=== PATIENT | male | born 1975 | race Caucasian/White ===

== ENCOUNTER 2018-05-10 20:38 | Emergency (ER) | payer BC ==
[2018-05-10] MEDS ORDERED: Ketorolac 30 MG/ML SDV IM ONE (21:04)
--- NOTE | 2018-05-10 21:04 | EDM.PDOC ---
ED HPI GENERAL MEDICAL PROBLEM - General Chief Complaint: Back Pain or Injury Stated Complaint: LOWER BACK PAIN Time Seen by Provider: 05/10/18 20:49 Source of Information: Reports: Patient, RN Notes Reviewed History Limitations: Reports: No Limitations - History of Present Illness INITIAL COMMENTS - FREE TEXT/NARRATIVE: Patient is a 42 year old male who presents to the ED for the evaluation of lower back pain. He notes this to be acute in onset. He denies any trauma to the area or previous injury. He states that normally his back is "tight" in the mornings. He woke up yesterday morning with his usual tightness and went about his day. He states that he went outside to start his vehicle and came back in and states that he noticed the pain. He denies any type of lifting/pulling/ twisting movement. He did go to the chiropractor yesterday and this provided some relief, as he was unable to find any type of comfortable position. He would rate his pain at an 8/10. He has been using aleve, ibuprofen and has tried a tab of hydrocodone and hot baths and ice packs. He states that the hydrocodone provided the most relief. He does not have a PCP. He notes that the pain is in his low back and he does have some pain in his right hip and upper thigh. He denies any urinary symptoms or incontinence. lower back Pain Score (Numeric/FACES): 10 - Related Data Allergies Allergy/AdvReac Type Severity Reaction Status Date / Time No Known Allergies Allergy Verified 05/10/18 20:52 Home Meds: Home Meds Orphenadrine [Norflex] 100 mg PO BID PRN #20 tab 05/10/18 [Rx] traMADol [Ultram] 50 mg PO Q6H PRN #30 tab 05/10/18 [Rx] ED ROS GENERAL - Review of Systems Review Of Systems: ROS reveals no pertinent complaints other than HPI. Musculoskeletal: Reports: Back Pain (low back with radiation to right leg), Leg Pain (right upper thigh) ED EXAM,LOWER BACK PAIN/INJURY - Physical Exam Exam: See Below Exam Limited By: No Limitations General Appearance: Alert, WD/WN, No Apparent Distress Respiratory/Chest: No Respiratory Distress, Lungs Clear, Normal Breath Sounds, No Accessory Muscle Use, Chest Non-Tender Cardiovascular: Normal Peripheral Pulses, Regular Rate, Rhythm, No Murmur Back Exam: Normal Inspection, Decreased Range of Motion (due to pain), Muscle Spasm (lumbar area). No: CVA Tenderness (L), CVA Tenderness (R) Extremities: Normal Inspection, Normal Range of Motion, Normal Capillary Refill Neurological: Alert, Normal Mood/Affect, Normal Dorsiflexion, Normal Plantar Flexion, Normal Gait, No Motor/Sensory Deficits, Oriented x 3, Straight Leg Raise (R). No: Straight Leg Raise (L), Saddle Anesthesia Psychiatric: Normal Affect, Normal Mood Skin Exam: Warm, Dry, Intact, Normal Color, No Rash Course - Vital Signs Last Recorded V/S: Last Vital Signs Temp 98.4 F 05/10/18 20:49 Pulse 85 05/10/18 20:49 Resp 18 05/10/18 20:49 BP 158/90 H 05/10/18 20:49 Pulse Ox 96 05/10/18 20:49 - Orders/Labs/Meds Orders: Active Orders 24 hr Category Date Time Status Lumbar Spine 2 or 3V [CR] Stat Exams 05/10/18 21:04 Ordered Meds: Medications Discontinued Medications Generic Name Dose Route Start Last Admin Trade Name Dirkq PRN Reason Stop Dose Admin Ketorolac Tromethamine 30 mg 05/10/18 21:04 05/10/18 21:22 Toradol IM 05/10/18 21:05 30 mg ONETIME ONE Administration Orphenadrine Citrate 100 mg 05/11/18 21:05 Norflex PO BEDTIME LOKI Orphenadrine Citrate 100 mg 05/10/18 21:16 05/10/18 21:21 Norflex PO 05/10/18 21:17 100 mg ONETIME ONE Administration Tramadol HCl 100 mg 05/10/18 22:00 05/10/18 22:13 Ultram PO 05/10/18 22:01 100 mg ONETIME ONE Administration - Re-Assessments/Exams Free Text/Narrative Re-Assessment/Exam: 05/10/18 21:14 Pt presents to the ED for the evaluation of acute onset lower back pain. I have ordered lumbar x-rays and 30 mg IM toradol and 100mg PO norflex for initial management. Plan is to send him home with tramadol and norflex script if he gets relief from initial medications. It is unlikely that he fractured anything , but d/t to the sudden unprovoked onset of pain I went ahead and ordered the spine x-rays for evaluation at this ED visit. 05/10/18 21:42 Lumbar x-rays do not demonstrate any obvious sign of bony abnormality. There is subtle mild degenerative change. Official radiologist read not done, These were reviewed with Dr. Pascual. 05/10/18 22:00 Pt re-assessed at bedside and x-ray results were discussed. He states that he did not get much relief from previous medications. I have ordered 100mg PO tramadol to see if this doesn't help his pain. Departure - Departure Time of Disposition: 22:45 Disposition: Home, Self-Care 01 Condition: Fair Clinical Impression: Low back pain Qualifiers: Chronicity: acute Back pain laterality: right Sciatica presence: with sciatica Sciatica laterality: sciatica of right side Qualified Code(s): M54.41 - Lumbago with sciatica, right side - Discharge Information *PRESCRIPTION DRUG MONITORING PROGRAM REVIEWED*: No *COPY OF PRESCRIPTION DRUG MONITORING REPORT IN PATIENT ANGELIC: No Prescriptions: Orphenadrine [Norflex] 100 mg PO BID PRN #20 tab PRN Reason: muscle spasms traMADol [Ultram] 50 mg PO Q6H PRN #30 tab PRN Reason: Pain Instructions: Back Injury Prevention, [id number], Back Exercises, Easy-to- Read, Back Pain, Adult, [id number] Referrals: PCP,None [Primary Care Provider] - Forms: ED Department Discharge Additional Instructions: You have been evaluated in the ED for your lower back pain. Your x-ray demonstrated no acute sign of any bony fracture/abnormality. Please use ice as tolerated to the affected area. Please take the Tramadol every 6 hours as needed for pain, this works best if you take around 400mg Ibuprofen in conjunction with the tramadol. Please take the Norflex 1 tab twice daily as needed for muscle spasms. You may take tylenol 500 mg or ibuprofen 600mg q6 hrs for pain relief. Please do so until you have a tolerable level of pain with activity. Do not exceed 4000mg tylenol in one day. Do not exceed 3200mg ibuprofen in one day. Please call [phone] to establish care with a primary care provider of your choice within the next week for further management. Please return to ED if your symptoms should change or worsen. - My Orders Last 24 Hours: My Active Orders 05/10/18 21:04 Lumbar Spine 2 or 3V [CR] Stat - Assessment/Plan Last 24 Hours: My Active Orders 05/10/18 21:04 Lumbar Spine 2 or 3V [CR] Stat
[2018-05-10] MEDS ORDERED: Orphenadrine 100 MG Tab.ER PO ONE (21:16)
[2018-05-10] MEDS ORDERED: traMADol 50 MG Tab PO ONE (22:00)
--- NOTE | 2018-05-11 10:00 | CR ---
Lumbar spine: AP, lateral and cone-down lateral views centered to the lumbosacral junction were obtained. Comparison: No prior lumbar spine imaging. Slight anterior osteophytes are noted off superior endplates of L4 and L5. Vertebral body heights and disc spaces are maintained. Pedicles are intact. Visualized transverse and spinous processes are intact. No subluxation or fracture is seen. Sacroiliac joints are within normal limits. Mild vascular calcification is noted within the aorta. Impression: 1. Minimal degenerative change. Mild atherosclerotic change as noted above. Diagnostic code #2
[2018-05-11] MEDS ORDERED: Orphenadrine 100 MG Tab.ER PO SCH (21:05)
== END 2018-05-10 22:55 | disposition home or self-care (01) ==
LOC: JD.ED 20:38
DX: M54.41 Lumbago with sciatica, right side (principal)
CPT/HCPCS: 72100; 96372; 99283; A9270; J1885

== ENCOUNTER 2018-05-15 10:14 | Emergency (ER) | payer BC ==
--- NOTE | 2018-05-15 10:53 | EDM.PDOC ---
ED HPI GENERAL MEDICAL PROBLEM - General Chief Complaint: Back Pain or Injury Stated Complaint: LOWER BACK PAIN Time Seen by Provider: 05/15/18 10:26 Source of Information: Reports: Patient, RN Notes Reviewed, Significant Other ( Fiance) History Limitations: Reports: No Limitations - History of Present Illness INITIAL COMMENTS - FREE TEXT/NARRATIVE: Medical records indicate that the patient was seen in this ED this past Wednesday , 05/10/2018, for sudden onset lower right back pain with radiation to the right lower extremity since 05/09/2018. X-rays of the lumbar spine at that time returned unremarkable. The patient was given Toradol, Norflex, and tramadol in the ED, then discharged home with prescriptions for Norflex and tramadol, with recommendation that he also take [id number] ibuprofen. He was given the phone number to follow-up in the clinic. The patient now returns to the ED stating that his back pain has not improved. He states that neither the Norflex nor tramadol help, but he acknowledges that he has not taking ibuprofen. He points to pain in the right sacroiliac area, and states that it occasionally radiates to his right anterior thigh and groin. He feels better if he is sitting Calvin such as in a vehicle, and feels okay if he is supine. The pain is made worse if he tries to lift his right lower extremity. He denies having any trauma to his lower back, denies prior similar symptoms. The patient states that he has been to his chiropractor 3 times since his last ED visit, but he did not call to follow-up with a PCP. The patient was hoping that I could order a MRI of his lower back for him today. Lower Back Pain Score (Numeric/FACES): 10 - Related Data Allergies Allergy/AdvReac Type Severity Reaction Status Date / Time No Known Allergies Allergy Verified 05/15/18 10:30 Home Meds: Home Meds Orphenadrine [Norflex] 100 mg PO BID PRN #20 tab 05/10/18 [Rx] traMADol [Ultram] 50 mg PO Q6H PRN #30 tab 05/10/18 [Rx] Past Medical History - Past Surgical History Musculoskeletal Surgical History: Reports: Other (See Below) (Left knee pinning) Social & Family History - Family History Family Medical History: Noncontributory - Tobacco Use Smoking Status *Q: Current Every Day Smoker Years of Tobacco use: 27 Packs/Tins Daily: 1 Packs/Tins Daily Comment: Down from 2 ppd - Caffeine Use Caffeine Use: Reports: Coffee - Alcohol Use Alcohol Use History: Yes Alcohol Use Frequency: Socially - Recreational Drug Use Recreational Drug Use: No - Living Situation & Occupation Living situation: Reports: Single, with Significant Other (Fiance), with Family (Daughter) Occupation: Employed (Undercar Specialist) ED ROS GENERAL - Review of Systems Review Of Systems: ROS reveals no pertinent complaints other than HPI. ED EXAM,LOWER BACK PAIN/INJURY - Physical Exam Exam: See Below Exam Limited By: No Limitations General Appearance: Alert, WD/WN, No Apparent Distress Back Exam: Normal Inspection, Full Range of Motion, Other (Reproducible point tenderness over the right SI joint. Nontender elsewhere. The patient is able to flex the spine to 90, and extend the spine to about 30. He is able to tilt the spine to the left to about 30, but is limited to about 10 to the right, citing lower right back pain. He is able to twist the spine to about 30 bilaterally. Unilateral knee bend is normal bilaterally. Straight leg raise is negative to about 80 bilaterally.). No: Paraspinal Tenderness (entire lumbar spine), Vertebral Tenderness (entire lumbar spine) Course - Vital Signs Last Recorded V/S: Last Vital Signs Temp 36.3 C 05/15/18 10:23 Pulse 90 05/15/18 10:23 Resp 16 05/15/18 10:23 BP 142/74 H 05/15/18 10:23 Pulse Ox 97 05/15/18 10:23 - Re-Assessments/Exams Free Text/Narrative Re-Assessment/Exam: 05/15/18 10:48 The sudden onset of the patient's low back pain on 05/09/2018, along with radiation to his right thigh, suggest a herniated intervertebral disc, however, his examination is not consistent with a bulging disc, rather, his examination is more consistent with sacroiliitis. If that is the cause, then ibuprofen and Norflex would be the best treatment options. I am recommending that he continue with these, and follow-up in the clinic as early as tomorrow, to perhaps arrange for a MRI of his lower back. Departure - Departure Time of Disposition: 10:49 Disposition: Home, Self-Care 01 Condition: Good Clinical Impression: Low back pain - Discharge Information *PRESCRIPTION DRUG MONITORING PROGRAM REVIEWED*: Not Applicable *COPY OF PRESCRIPTION DRUG MONITORING REPORT IN PATIENT ANGELIC: Not Applicable Instructions: Back Pain, Adult, [id number] Referrals: Alysa Michelle MD [Physician] - Forms: ED Department Discharge Additional Instructions: You were seen in the emergency room for continued lower right back pain. The cause of your lower back pain is unclear, but based on your examination, is most likely due to sacroiliitis, and less likely due to a herniated intervertebral disc or arthritis of the lower spine. We recommend that you continue to take the muscle relaxant Norflex, one tablet every 12 hours, as previously prescribed. We recommend that you continue to take [id number] ibuprofen, 2-3 tablets ( 400-600 mg) every 8 hours, with food, as needed for discomfort. We recommend that you try to minimize the use of the tramadol that you were earlier prescribed. Follow-up with Dr. Alysa Michelle, or one of the other providers in the clinic, as early as tomorrow, 05/16/2018. If any other problems, please do not hesitate to return to the ER.
== END 2018-05-15 11:03 | disposition home or self-care (01) ==
LOC: JD.ED 10:14
DX: M54.5 Low back pain (principal); F17.210 Nicotine dependence, cigarettes, uncomplicated
CPT/HCPCS: 99282; 99283

== ENCOUNTER 2021-07-05 22:00 | Emergency (ER) | payer BC, OTHER | END 2021-07-05 22:44 | disposition home or self-care (01) | LOC: JD.ED 22:00 | DX: K04.7 Periapical abscess without sinus (principal); R60.0 Localized edema; Z91.048 Other nonmedicinal substance allergy status; Z87.891 Personal history of nicotine dependence | CPT/HCPCS: 99282; 99283 ==

== ENCOUNTER 2022-03-22 06:27 | Day surgery (SDC) | payer OTHER ==
[2022-03-22] MEDS ORDERED: Sodium Chloride 0.9% 10 ML Syringe FLUSH PRN ×2 (06:40→07:37)
[2022-03-22] MEDS ORDERED: Aspirin 81 MG Tab.Chew PO ONE (06:40)
[2022-03-22 07:07] LABS: ESTIMATED GFR 106 mL/min (>60)
[2022-03-22] MEDS ORDERED: HYDROmorphone 1 MG/ML Syringe IVPUSH ONE (07:10)
[2022-03-22] MEDS ORDERED: Famotidine 20 MG/2 ML SDV IVPUSH ONE (07:10)
[2022-03-22] MEDS ORDERED: Ondansetron 4 MG/2 ML SDV IVPUSH ONE (07:10)
[2022-03-22] MEDS ORDERED: Sodium Chloride 0.9% 1,000 ML IV SCH ×2 (07:15→09:00)
[2022-03-22] MEDS ORDERED: Iopamidol 612 MG/ML 100 ML Bottle IVPUSH ONE (07:37)
[2022-03-22] MEDS ORDERED: Piperacillin/Tazobactam 4.5 GM in Sodium Chloride 0.9% 100 ML IV ONE (08:49)
[2022-03-22] MEDS ORDERED: Bupivacaine 0.5% 30 ML SDV ONE (11:34)
[2022-03-22] MEDS ORDERED: Lidocaine 1% 50 ML MDV ONE (11:34)
[2022-03-22] MEDS ORDERED: Ondansetron 4 MG/2 ML SDV ONE (11:40)
[2022-03-22] MEDS ORDERED: Rocuronium 50 MG/5 ML Vial ONE (11:40)
[2022-03-22] MEDS ORDERED: Propofol 200 MG/20 ML SDV ONE (11:41)
[2022-03-22] MEDS ORDERED: Lidocaine 1% 5 ML VIAL ONE (11:41)
[2022-03-22] MEDS ORDERED: Midazolam 1 MG/ML 2 ML SDV ONE (11:41)
[2022-03-22] MEDS ORDERED: fentaNYL 100 MCG/2 ML SDV ONE (11:42)
[2022-03-22 11:45] LABS: CORONAVIRUS COVID-19 NAA NEGATIVE (NEGATIVE)
[2022-03-22] MEDS ORDERED: Bupivacaine 0.5%/EPINEPHrine 1:200,000 50 ML MDV ONE (11:50)
[2022-03-22] MEDS ORDERED: HYDROmorphone 0.5 MG/0.5 ML Syringe IVPUSH PRN (12:06)
[2022-03-22] MEDS ORDERED: fentaNYL 100 MCG/2 ML SDV IVPUSH PRN (12:06)
[2022-03-22] MEDS ORDERED: Albuterol 0.083% 2.5 MG/3 ML Neb Soln NEB ONE (12:06)
[2022-03-22] MEDS ORDERED: Ondansetron 4 MG/2 ML SDV IVPUSH PRN (12:06)
[2022-03-22] MEDS ORDERED: Lactated Ringers 1,000 ML ONE ×2 (12:39→12:52)
[2022-03-22] MEDS ORDERED: Dexamethasone 4 MG/ML 5 ML MDV ONE (12:46)
[2022-03-22] MEDS ORDERED: Neostigmine Methylsulfate 10 MG/10 ML MDV ONE (12:56)
[2022-03-22] MEDS ORDERED: Ketorolac 30 MG/ML SDV ONE (13:18)
[2022-03-22] MEDS ORDERED: Acetaminophen/oxyCODONE 325-5 MG Tab PO ONE (14:23)
== END 2022-03-22 16:30 | disposition home or self-care (01) ==
LOC: JD.ED 06:27 → JD.SDS 11:31
PROVIDERS: ATTEND Surgery
DX: K35.33 Acute appendicitis with perforation, localized peritonitis, and gangrene, with abscess (principal); I10 Essential (primary) hypertension; F17.210 Nicotine dependence, cigarettes, uncomplicated; Z20.822 Contact with and (suspected) exposure to COVID-19; Z91.048 Other nonmedicinal substance allergy status; Z79.899 Other long term (current) drug therapy; Z98.890 Other specified postprocedural states
CPT/HCPCS: 0241U; 36415; 44970; 71045; 74177; 80053; 82977; 83690; 83735; 84484; 85025; 85379; 85610; 86140; 93005; 94640; 96361; 96365; 96375; 99285; A9270; J1100; J1170; J1885; J2001; J2250; J2405; J2543; J2704; J2710; J3490; J7030; J7120; Q9967; 00840; 99140; J3010

== ENCOUNTER 2024-05-11 23:08 | Emergency (ER) | payer OTHER ==
[2024-05-12] MEDS: Sodium Chloride 0.9% 10 ML Syringe FLUSH PRN (00:24)
[2024-05-12] MEDS: Sodium Chloride 0.9% 1,000 ML IV ONE (00:24)
[2024-05-12] MEDS ORDERED: Naloxone 0.4 MG/ML SDV IVPUSH PRN (00:27)
[2024-05-12] MEDS: Ondansetron 4 MG/2 ML SDV IVPUSH ONE (00:32)
[2024-05-12 00:33] LABS: BASOPHILS ABSOLUTE AUTO 0.1 K/mm3 (0.0-0.2); BASOPHILS PERCENT AUTO 0.9 % (0.0-1.0); EOSINOPHILS PERCENT AUTO 0.4 % (0.0-6.0); HEMATOCRIT 40.7 % (42.0-52.0); HEMOGLOBIN 13.9 gm/dl (14.0-18.0); IMMATURE GRAN ABSOLUTE AUTO 0.03 K/mm3 (0.00-0.05); IMMATURE GRAN PERCENT AUTO 0.4 % (0.0-0.4); LYMPHOCYTES ABSOLUTE AUTO 0.7 K/mm3 (1.0-4.8); LYMPHOCYTES PERCENT AUTO 9.6 % (24.0-44.0); MEAN CORPUSCULAR HGB CONC 34.2 g/dl (32.0-36.0); MEAN CORPUSCULAR VOLUME 87.7 fl (83.0-99.0); MONOCYTES ABSOLUTE AUTO 0.7 K/mm3 (0.0-0.8); MONOCYTES PERCENT AUTO 9.7 % (0.0-8.0); PLATELET COUNT,PLT 235 K/mm3 (150-400); RED BLOOD CELL COUNT 4.64 M/mm3 (4.52-5.90); WHITE BLOOD CELL COUNT,WBC 7.61 K/mm3 (3.9-11.3)
[2024-05-12] MEDS: Morphine 4 MG/ML Syringe IVPUSH ONE (00:33)
[2024-05-12 00:56] LABS: A/G RATIO 1.1 (1-2); ALBUMIN 3.7 g/dl (3.4-5.0); BILIRUBIN TOTAL 0.2 mg/dL (0.2-1.0); CALCIUM 8.6 mg/dL (8.5-10.1); EST CRCL DRUG DOSING (CG) 89.36 mL/min; PROTEIN TOTAL,TP 7.2 g/dl (6.4-8.2)
[2024-05-12] MEDS: Azithromycin 250 MG Tab PO SCH (04:52)
== END 2024-05-12 04:55 | disposition home or self-care (01) ==
LOC: JD.ED 23:08
DX: J11.00 Influenza due to unidentified influenza virus with unspecified type of pneumonia (principal); Z91.09 Other allergy status, other than to drugs and biological substances; Z79.899 Other long term (current) drug therapy
CPT/HCPCS: 36415; 71045; 71045-26; 80053; 85025; 87428-QW; 96361; 96374; 96375; 99284-25; A9270-GY; J2270; J2405; J7030